=== PATIENT | female | born 1950 | race Caucasian/White ===

== ENCOUNTER → 2020-06-19 | Outpatient (CLI) | payer MEDICARE ==
[~2020-06-19] MED LIST: METH500T5 PO; NAPR-685 PO; POLY17PO5 PO; [UNRECOGNIZED DRUG - CODE] PO
[2020-06-19 16:22] LABS: ANION GAP 6 mmol/L (5-15); CALCIUM 10.7 mg/dL (8.5-10.1); CHLORIDE 94 mmol/L (98-107)
[2020-06-19 16:29] LABS: INTERNATIONAL NORMALIZED RATIO 0.98 (0.93-1.1); PROTHROMBIN TIME 10.5 Seconds (9.6-11.5)
[2020-06-19 16:48] LABS: MEAN CORPUSCULAR HEMOGLOBIN 31.5 pg (27.0-34.8); MEAN CORPUSCULAR HGB CONC 34.4 g/dL (32.4-35.8); PLATELET COUNT 291 x10^3/uL (130-400); RED CELL DISTRIBUTION WIDTH 13.1 % (9.6-15.2)
[2020-06-19 17:59] LABS: MD YES
[2020-06-19 18:04] LABS: BAND#(MANUAL) 0.19 x10^3/uL; BANDS%(MANUAL) 2 % (0-7); BASOS#(MANUAL) 0.28 x10^3/uL (0-0.1); BASOS% (MANUAL) 3 % (0-1); EOS#(MANUAL) 0.84 x10^3/uL (0.0-0.4); EOS% (MANUAL) 9 % (1-7); LYMPH#(MANUAL) 1.86 x10^3/uL (1-3.4); LYMPHS% (MANUAL) 20 % (22-44); MONOS#(MANUAL) 0.84 x10^3/uL (0.3-2.7); MONOS% (MANUAL) 9 % (2-9); SEGS% (MANUAL) 57 % (42-75)
[2020-06-19 18:05] LABS: <PLT MORPHOLOGY> NORMAL PLT MORPH; <RBC MORPHOLOGY> NORMAL
[2020-06-19 18:07] LABS: <PLATELET ESTIMATE> ADEQUATE
== END | disposition home or self-care (01) ==
LOC: STAR 14:38
PROVIDERS: ATTEND Neurological Surgery
DX: Z01.812 Encounter for preprocedural laboratory examination (principal); Z20.822 Contact with and (suspected) exposure to COVID-19; M80.08XA Age-related osteoporosis with current pathological fracture, vertebra(e), initial encounter for fracture
CPT/HCPCS: 80048; 85025; 85610; 85730; 87635; 93005

== ENCOUNTER 2020-06-25 10:54 | Day surgery (SDC) | payer MEDICARE ==
[~2020-06-25] VITALS: Ht 172.7 cm; Wt 63.2 kg
[~2020-06-25 10:54] MED LIST changes: +CHLORHEXIDINE 15 ML UDC ONE; +SCOPOLAMINE 1MG PATCH TD ONE
[2020-06-25 11:17] VITALS: BP 112/76
[2020-06-25] MEDS ORDERED: OXYC1TAB14 PO (11:24)
[2020-06-25] MEDS ORDERED: CHLORHEXIDINE 15 ML UDC MM ONE (11:30)
[2020-06-25] MEDS ORDERED: LACTATED RINGERS 1,000 ML IV SCH (12:00)
[2020-06-25] MEDS ORDERED: BUPIVACAINE/PF 0.5% ONE (12:26)
[2020-06-25] MEDS ORDERED: EPINEPHRINE 1 MG/ML, 1ML ONE (12:26)
[2020-06-25] MEDS ORDERED: BACITRACIN OINT 500U/GM, 15 GM ONE (12:26)
[2020-06-25] MEDS ORDERED: BACITRACIN 50,000 UNIT ONE (12:26)
[2020-06-25] MEDS ORDERED: OXYcodone IR 5MG TABLET PO PRN (12:30)
[2020-06-25] MEDS ORDERED: FENTANYL PF 100 MCG/2ML ONE ×3 (13:48→15:32)
[2020-06-25] MEDS ORDERED: OMNIPAQUE 180 MG/ML, 20ML VIAL ONE (13:51)
[2020-06-25] MEDS ORDERED: DEXAMETHASONE 4 MG/ML, 1ML ONE (15:03)
[2020-06-25] MEDS ORDERED: GLYCOPYRROLATE 0.2MG/1ML, 5ML ONE (15:03)
[2020-06-25] MEDS ORDERED: ONDANSETRON 2MG/ML, 2ML ONE (15:03)
[2020-06-25] MEDS ORDERED: NEOSTIGMINE 1 MG/ML, 10ML ONE (15:03)
[2020-06-25] MEDS ORDERED: PROPOFOL 10 MG/ML, 20ML ONE (15:03)
[2020-06-25] MEDS ORDERED: ROCURONIUM 10MG/ML,5ML ONE (15:03)
[2020-06-25] MEDS ORDERED: SUGAMMADEX 200 MG/2 ML IVPush ONE (15:03)
[2020-06-25] MEDS ORDERED: CEFAZOLIN 1,000 MG ONE (15:03)
[2020-06-25] MEDS ORDERED: LORazepam 2 MG/ML, 1ML ONE (15:20)
[2020-06-25] MEDS: LORazepam 2 MG/ML, 1ML IVPush PRN ×2 (15:22→15:33)
[2020-06-25] MEDS ORDERED: ONDANSETRON 2MG/ML, 2ML IVPush PRN (15:30)
[2020-06-25] MEDS ORDERED: OXYcodone 5 MG/5 ML ORAL.SOL UDC PO PRN (15:30)
[2020-06-25] MEDS ORDERED: FENTANYL PF 100 MCG/2ML IV PRN (15:30)
[2020-06-25] MEDS ORDERED: ACETAMINOPHEN 325 MG TABLET PO PRN (15:30)
[2020-06-25] MEDS ORDERED: PROMETHAZINE 25 MG SUPP PR PRN (15:30)
[2020-06-25] MEDS ORDERED: HYDROmorphone 1 MG/ML, 1ML INJ IVPush PRN (15:30)
[2020-06-25] MEDS ORDERED: PROMETHAZINE 25 MG/ML, 1ML IVPush PRN (15:30)
[2020-06-25] MEDS ORDERED: METHOCARBAMOL 1,000 MG in DEXTROSE 5% 100 ML IV PRN (15:30)
== END 2020-06-25 18:10 | disposition home or self-care (01) ==
LOC: OUT 10:54
PROVIDERS: ATTEND Neurological Surgery
DX: M80.08XA Age-related osteoporosis with current pathological fracture, vertebra(e), initial encounter for fracture (principal); M51.36 Other intervertebral disc degeneration, lumbar region; M85.88 Other specified disorders of bone density and structure, other site; F41.9 Anxiety disorder, unspecified; F32.9 Major depressive disorder, single episode, unspecified; Z79.891 Long term (current) use of opiate analgesic; Z79.899 Other long term (current) drug therapy; Z98.890 Other specified postprocedural states; Z82.61 Family history of arthritis; Z82.49 Family history of ischemic heart disease and other diseases of the circulatory system; Z80.9 Family history of malignant neoplasm, unspecified
CPT/HCPCS: 22514; 22515; 36415; 72100; 84295; 86850; 86900; 88307; 88311; C1713; J0171; J0690; J1100; J2060; J2405; J2704; J2800; J3010; J7120; Q9965; J2710

== ENCOUNTER → 2020-07-24 | Outpatient (CLI) | payer MEDICARE ==
[~2020-07-24] MED LIST changes: -CHLORHEXIDINE 15 ML UDC ONE; +OXYC1TAB14 PO; -SCOPOLAMINE 1MG PATCH TD ONE
[2020-07-24 14:39] LABS: BASOPHILS % (AUTO) 1 % (0-1); EOSINOPHILS % (AUTO) 7 % (1-7); LYMPHOCYTES % (AUTO) 24 % (22-44); MEAN CORPUSCULAR HEMOGLOBIN 31.3 pg (27.0-34.8); MEAN CORPUSCULAR HGB CONC 33.5 g/dL (32.4-35.8); MEAN PLATELET VOLUME 7.6 fL (7.4-10.4); MONOCYTES % (AUTO) 7 % (2-9); NEUTROPHILS % (AUTO) 61 % (42-75); PLATELET COUNT 309 x10^3/uL (130-400); RED BLOOD COUNT 4.24 x10^6/uL (3.82-5.3); RED CELL DISTRIBUTION WIDTH 13.6 % (9.6-15.2)
[2020-07-24 14:43] LABS: MD NO
[2020-07-24 14:52] LABS: ANION GAP 2 mmol/L (5-15); CALCIUM 10.3 mg/dL (8.5-10.1); CHLORIDE 101 mmol/L (98-107); CREATININE 0.54 mg/dL (0.55-1.02)
== END | disposition home or self-care (01) ==
LOC: STAR 13:36
PROVIDERS: ATTEND Neurological Surgery
DX: Z01.812 Encounter for preprocedural laboratory examination (principal); M80.08XS Age-related osteoporosis with current pathological fracture, vertebra(e), sequela; Z20.822 Contact with and (suspected) exposure to COVID-19
CPT/HCPCS: 36415; 80048; 85025; U0003

== ENCOUNTER 2020-07-30 09:16 | Day surgery (SDC) | payer MEDICARE ==
[~2020-07-30] VITALS: Ht 172.7 cm; Wt 58.2 kg
[~2020-07-30 09:16] MED LIST changes: +BUPIVACAINE/PF 0.5% ONE; +EPINEPHRINE 1 MG/ML, 1ML ONE
[2020-07-30] MEDS ORDERED: ACET-1600 PO (09:44)
[2020-07-30] MEDS ORDERED: CHLORHEXIDINE 15 ML UDC ONE (09:48)
[2020-07-30] MEDS ORDERED: LACTATED RINGERS 1,000 ML IV SCH (10:00)
[2020-07-30] MEDS ORDERED: CHLORHEXIDINE 15 ML UDC PO ONE (10:00)
[2020-07-30 10:08] VITALS: BP 142/91
[2020-07-30] MEDS ORDERED: FENTANYL PF 100 MCG/2ML ONE ×3 (11:52→15:25)
[2020-07-30] MEDS ORDERED: MIDAZOLAM 1 MG/ML, 2ML ONE ×2 (11:53→15:25)
[2020-07-30] MEDS ORDERED: PROPOFOL 10 MG/ML, 20ML ONE (11:54)
[2020-07-30] MEDS ORDERED: ROCURONIUM 10MG/ML,5ML ONE (11:56)
[2020-07-30] MEDS ORDERED: LIDOCAINE-MPF 2% ,5ML ONE (11:56)
[2020-07-30] MEDS ORDERED: CEFAZOLIN 1,000 MG ONE ×2 (11:56)
[2020-07-30] MEDS ORDERED: ONDANSETRON 2MG/ML, 2ML ONE (11:56)
[2020-07-30] MEDS ORDERED: OMNIPAQUE 180 MG/ML, 20ML VIAL ONE (13:15)
[2020-07-30] MEDS ORDERED: NEOSTIGMINE 1 MG/ML, 10ML ONE (13:29)
[2020-07-30] MEDS ORDERED: GLYCOPYRROLATE 0.2MG/1ML, 5ML ONE (13:29)
[2020-07-30] MEDS ORDERED: OXYcodone 5 MG/5 ML ORAL.SOL UDC PO PRN (14:30)
[2020-07-30] MEDS ORDERED: DIAZEPAM 5 MG/ML, 2ML IVPush PRN (14:30)
[2020-07-30] MEDS ORDERED: ACETAMINOPHEN 325 MG TABLET PO PRN (14:30)
[2020-07-30] MEDS ORDERED: HYDROmorphone 1 MG/ML, 1ML INJ IVPush PRN (14:30)
[2020-07-30] MEDS ORDERED: LABETALOL 5MG/ML, 20ML IV PRN (14:30)
[2020-07-30] MEDS ORDERED: PROMETHAZINE 25 MG/ML, 1ML IVPush PRN (14:30)
[2020-07-30] MEDS ORDERED: ONDANSETRON 2MG/ML, 2ML IVPush PRN (14:30)
[2020-07-30] MEDS ORDERED: METHOCARBAMOL 1,000 MG in DEXTROSE 5% 100 ML IV PRN (14:30)
[2020-07-30] MEDS ORDERED: hydrALAzine 20 MG/ML, 1ML IV PRN (14:30)
[2020-07-30] MEDS ORDERED: DIPHENHYDRAMINE 50 MG/ML, 1ML IVPush PRN (14:30)
[2020-07-30] MEDS ORDERED: MEPERIDINE/PF 25MG/0.5ML IVPush PRN (14:30)
[2020-07-30] MEDS ORDERED: ACETAMINOPHEN 650 MG/20.3 ML UDC ONE (15:25)
[2020-07-30] MEDS ORDERED: OXYcodone 5 MG/5 ML ORAL.SOL UDC ONE (15:26)
[2020-07-30] MEDS: FENTANYL PF 100 MCG/2ML IV PRN ×2 (15:37→16:04)
[2020-07-30] MEDS ORDERED: ACETAMINOPHEN 500 MG TABLET PO SCH (16:00)
[2020-07-30] MEDS ORDERED: MIDAZOLAM 1 MG/ML, 2ML IVPush PRN (16:00)
[2020-07-31] MEDS ORDERED: PSYLLIUM PACKET PO SCH (09:00)
[2020-07-31] MEDS ORDERED: POLYETHYLENE GLYCOL 17 GM PACKET PO SCH (09:00)
== END 2020-07-30 17:35 | disposition home or self-care (01) ==
LOC: OUT 09:16
PROVIDERS: ATTEND Neurological Surgery
DX: M80.08XA Age-related osteoporosis with current pathological fracture, vertebra(e), initial encounter for fracture (principal); F41.9 Anxiety disorder, unspecified; F32.9 Major depressive disorder, single episode, unspecified; F17.200 Nicotine dependence, unspecified, uncomplicated; Z79.899 Other long term (current) drug therapy; Z79.891 Long term (current) use of opiate analgesic; Z98.890 Other specified postprocedural states; Z82.61 Family history of arthritis; Z82.49 Family history of ischemic heart disease and other diseases of the circulatory system
CPT/HCPCS: 22514; 22515; 72100; 88307; 88311; C1713; J0171; J0690; J2250; J2405; J2704; J2710; J3010; J7120; Q9965